=== PATIENT | male | born 1955 | race Caucasian/White ===

== ENCOUNTER 2018-09-04 07:00 | Day surgery (SDC) | payer OTHER ==
[2018-09-04] MEDS ORDERED: PROPOFOL 20 ML (09:24)
[2018-09-04] MEDS ORDERED: LIDOCAINE 2% (SDV) 5 ML INJ (09:24)
[2018-09-04] MEDS ORDERED: MIDAZOLAM 1 MG/ML 2 ML INJ (09:24)
[2018-09-04] MEDS ORDERED: CEFAZOLIN 1 GM INJ (09:24)
[2018-09-04] MEDS ORDERED: FENTAnyl 50 MCG/ML VIAL ×2 (09:27→10:26)
[2018-09-04] MEDS ORDERED: MEPERIDINE 25 MG INJ IV (09:30)
[2018-09-04] MEDS ORDERED: HYDROmorphONE 1 MG/5 ML IV SYRINGE IV (09:30)
[2018-09-04] MEDS ORDERED: OXYCODONE/ACETAMINOPHEN (5/325) TAB PO ×2 (09:30)
[2018-09-04] MEDS ORDERED: ROPIVACAINE 0.5 % 30 ML VIAL (09:59)
[2018-09-04] MEDS ORDERED: LIDOCAINE 1% (MPF) 30 ML INJ (09:59)
[2018-09-04] MEDS ORDERED: NEOMYC/POLYMYX/BACIT 30 GM OINT (10:00)
[2018-09-04] MEDS ORDERED: morphine SULFATE/PF (10 MG/10 ML) INJ (10:00)
[2018-09-04] MEDS ORDERED: ONDANSETRON 4 MG INJ (10:04)
[2018-09-04] MEDS ORDERED: DEXAMETHASONE 4 MG/ML 5 ML INJ (10:04)
[2018-09-04] MEDS ORDERED: METOCLOPRAMIDE 10 MG INJ (10:04)
[2018-09-04] MEDS ORDERED: FAMOTIDINE 20 MG INJ (10:04)
[2018-09-04] MEDS ORDERED: EPHEDrine 25 MG/5 ML SYG (10:32)
[2018-09-04] MEDS ORDERED: IOHEXOL 300MG/ML 30 ML BTL (10:33)
[2018-09-04] MEDS: SODIUM CL BACTERIOSTATIC 30 ML INJ (10:47)
[2018-09-04] MEDS: HEPARIN 1000 UNITS/ML 10 ML INJ (10:47)
[2018-09-04] MEDS ORDERED: LABETALOL HCL 20MG INJ (11:02)
[2018-09-04] MEDS ORDERED: KETOROLAC 30 MG INJ (11:14)
[2018-09-04] MEDS: HYDROmorphONE 1 MG/5 ML IV SYRINGE IV ×2 (12:10→12:16)
[2018-09-04] MEDS: ONDANSETRON 4 MG INJ IV (12:10)
[2018-09-04] MEDS ORDERED: morphine 2 MG INJ IV (12:30)
== END 2018-09-04 13:55 | disposition home or self-care (01) ==
LOC: SDS 07:00
DX: M23.221 Derangement of posterior horn of medial meniscus due to old tear or injury, right knee (principal); M23.251 Derangement of posterior horn of lateral meniscus due to old tear or injury, right knee; M94.261 Chondromalacia, right knee
CPT/HCPCS: 29880; 73562; 82306

== ENCOUNTER 2018-12-25 07:31 | Day surgery (SDC) | payer OTHER ==
[2018-12-25] MEDS ORDERED: NEOMYC/POLYMYX/BACIT 30 GM OINT (08:55)
[2018-12-25] MEDS ORDERED: FENTAnyl 50 MCG/ML VIAL IV ×3 (09:00)
[2018-12-25] MEDS ORDERED: ALBUTEROL 0.083% (NEB) 2.5 MG/3 ML AMP HHN (09:00)
[2018-12-25] MEDS ORDERED: HYDROmorphONE 1 MG/5 ML IV SYRINGE IV ×3 (09:00)
[2018-12-25] MEDS ORDERED: MEPERIDINE 25 MG INJ IV (09:00)
[2018-12-25] MEDS ORDERED: METOCLOPRAMIDE 10 MG INJ IV (09:00)
[2018-12-25] MEDS ORDERED: ONDANSETRON 4 MG INJ IV (09:00)
[2018-12-25] MEDS ORDERED: DIPHENHYDRAMINE 50 MG INJ IV (09:00)
[2018-12-25] MEDS ORDERED: FENTAnyl 50 MCG/ML VIAL (09:10)
[2018-12-25] MEDS ORDERED: SODIUM CL BACTERIOSTATIC 30 ML INJ (09:31)
[2018-12-25] MEDS ORDERED: ROCURONIUM 50 MG INJ (09:37)
[2018-12-25] MEDS ORDERED: SUGAMMADEX SODIUM 200 MG/2 ML VIAL IV (09:37)
[2018-12-25] MEDS ORDERED: SUCCINYLCHOLINE CHLORIDE 100 MG/5 ML SYG IV (09:37)
[2018-12-25] MEDS ORDERED: CEFAZOLIN 1 GM INJ (09:37)
[2018-12-25] MEDS ORDERED: LIDOCAINE 100 MG SYRINGE (09:37)
[2018-12-25] MEDS ORDERED: PROPOFOL 20 ML (09:37)
[2018-12-25] MEDS: IOHEXOL 300MG/ML 30 ML BTL (10:26)
[2018-12-25] MEDS: ROPIVACAINE 0.5 % 30 ML VIAL (10:26)
[2018-12-25] MEDS: HEPARIN 1000 UNITS/ML 10 ML INJ (10:27)
[2018-12-25] MEDS ORDERED: morphine 2 MG INJ IV (12:00)
== END 2018-12-25 11:14 | disposition home or self-care (01) ==
LOC: SDS 07:31
DX: S83.242A Other tear of medial meniscus, current injury, left knee, initial encounter (principal); M94.262 Chondromalacia, left knee; M84.462A Pathological fracture, left tibia, initial encounter for fracture; X58.XXXA Exposure to other specified factors, initial encounter
CPT/HCPCS: 29881; 73562; 82306